=== PATIENT | male | born 1965 | race Caucasian/White ===

== ENCOUNTER → 2016-10-24 | Outpatient (CLI) | payer BC | END | disposition home or self-care (01) | LOC: GMAB 11:04 | PROVIDERS: ATTEND Family Medicine | DX: Z00.01 Encounter for general adult medical examination with abnormal findings (principal) ==

== ENCOUNTER → 2018-02-18 | Outpatient (CLI) | payer BC | LOC: GMAE 11:43 | PROVIDERS: ATTEND Family Medicine | DX: E78.2 Mixed hyperlipidemia (principal) ==

== ENCOUNTER → 2018-11-20 | Outpatient (CLI) | payer BC | LOC: GMAE 10:57 | PROVIDERS: ATTEND Family Medicine | DX: Z00.01 Encounter for general adult medical examination with abnormal findings (principal) ==

== ENCOUNTER → 2020-02-26 | Outpatient (CLI) | payer BC | LOC: GMAE 10:40 | PROVIDERS: ATTEND Family Medicine | DX: Z00.00 Encounter for general adult medical examination without abnormal findings (principal) ==

== ENCOUNTER → 2020-05-06 | Outpatient (CLI) | payer BC | LOC: GMAE 11:49 | PROVIDERS: ATTEND Family Medicine | DX: R74.01 Elevation of levels of liver transaminase levels (principal); D50.8 Other iron deficiency anemias; E78.2 Mixed hyperlipidemia ==

== ENCOUNTER → 2020-05-24 | Outpatient (CLI) | payer BC ==
--- NOTE | 2020-05-24 15:44 | US ---
EXAM DESCRIPTION: Liver: ULTRASOUND. CLINICAL HISTORY: ELEVATED LEVEL OF LIVER TRANSAMINASE COMPARISON: None. TECHNIQUE: Transabdominal scannin-dimensional and Doppler modes. FINDINGS: Gallbladder: normal size, shape, echogenicity; no intraluminal stones or sludge. No fluid around the gallbladder. No wall thickening. 2.4 mm. Non-tender with transducer pressure. Common bile duct: caliber 5.8 mm within normal limits. Liver: Heterogeneously increased echogenicity; contour liver capsule smooth where seen. No fluid around the liver. Intrahepatic biliary ducts normal caliber. Doppler hepatopedal flow portal vein. 7.4 mm. Long axis right lobe 14.7 cm. Pancreas: normal size and echogenicity. Duct not seen. Right kidney: long axis measures 8.7 cm. Volume 114.7 ml. Cortical echogenicity is normal. Cortical thickness 12 mm. No echogenic stone; no hydronephrosis. Aorta proximal: 1.7 cm normal caliber. IMPRESSION: 1. Steatosis of the liver without enlargement. Physiologic ducts and vascularity. Smooth capsule and no ascites. 2. Pancreas, gallbladder, common bile duct, right kidney, and proximal abdominal aorta are unremarkable. Electronically signed by: Hamlet Benson MD 05/24/2020 3:42 PM [employer]
== END ==
LOC: US 07:55
PROVIDERS: ATTEND Family Medicine
DX: R74.01 Elevation of levels of liver transaminase levels (principal); K76.0 Fatty (change of) liver, not elsewhere classified